=== PATIENT | male | born 1950 | race Caucasian/White ===

== ENCOUNTER 2017-11-18 05:48 | Inpatient (IN) | payer OTHER, MEDICARE ==
[2017-11-16 12:56] VITALS: BMI 28.1
[~2017-11-18 05:48] MED LIST: CELECOXIB 200 MG CAPSULE PO ONE; oxyCODONE HCL 10 MG SUSTAINED ACTING TABLET PO ONE
[2017-11-18] MEDS ORDERED: CELECOXIB 200 MG CAPSULE ONE (06:43)
[2017-11-18] MEDS ORDERED: oxyCODONE HCL 10 MG SUSTAINED ACTING TABLET ONE (06:44)
[2017-11-18] MEDS ORDERED: MIDAZOLAM HCL 2 MG/2 ML SINGLE DOSE VIAL ONE (06:59)
[2017-11-18] MEDS ORDERED: DEXAMETHASONE SOD PHOSPHATE/PF 10 MG/ML SDV ONE (06:59)
[2017-11-18] MEDS ORDERED: BUPIVACAINE LIPOSOME/PF (EXPAREL) 266 MG/20 ML VIAL ONE (06:59)
[2017-11-18] MEDS ORDERED: SODIUM CHLORIDE 0.9% P/F 10 ML VIAL IJ ONE (07:00)
[2017-11-18] MEDS ORDERED: ROPIVACAINE HCL 0.5% 30ML VIAL ONE (07:00)
--- NOTE | 2017-11-18 07:09 | HP ---
HISTORY OF PRESENT ILLNESS Patient is a 67 y/o male with a past medical history of hypertension, hyperipidemia, DJD, renal insufficency, and lumbar radiculopathy (s/p lumbar disc fusion). Patient was admitted for elective left total knee replacement, Dr Yusuf. PCP: Dr Villanueva Universal Banker: Dr Noland Recent travel: none Family History: father-, [place] mother, heart disease Social History:retired resides at home Smoking:none Alcohol:social Drugs: none REVIEW OF SYSTEMS CONSTITUTIONAL: Absent: fever, chills, diaphoresis, generalized weakness, malaise, loss of appetite, weight change HEENT: Absent: rhinorrhea, nasal congestion, throat pain, throat swelling, difficulty swallowing, mouth swelling, ear pain, eye pain, visual changes CARDIOVASCULAR: Absent: chest pain, syncope, palpitations, irregular heart rate, lightheadedness , peripheral edema RESPIRATORY: Absent: cough, shortness of breath, dyspnea with exertion, orthopnea, wheezing, stridor, hemoptysis GASTROINTESTINAL: Absent: abdominal pain, abdominal distension, nausea, vomiting, diarrhea, constipation, melena, hematochezia GENITOURINARY: Absent: dysuria, frequency, urgency, hesitancy, hematuria, flank pain, genital pain MUSCULOSKELETAL: present: left knee pain Absent: myalgia, arthralgia, joint swelling, back pain, neck pain SKIN: Absent: rash, itching, pallor HEMATOLOGIC/IMMUNOLOGIC: Absent: easy bleeding, easy bruising, lymphadenopathy, frequent infections ENDOCRINE: Absent: unexplained weight gain, unexplained weight loss, heat intolerance, cold intolerance NEUROLOGIC: Absent: headache, focal weakness or paresthesias, dizziness, unsteady gait, seizure, mental status changes, bladder or bowel incontinence PSYCHIATRIC: Absent: anxiety, depression, suicidal or homicidal ideation, hallucinations. PHYSICAL EXAMINATION: Vital Signs Temperature 97.5 F L 11/18/17 06:48 Pulse Rate 54 L 11/18/17 06:48 Respiratory Rate 17 11/18/17 06:48 Blood Pressure 155/79 11/18/17 06:48 O2 Sat by Pulse Oximetry (%) GENERAL: Awake, alert, and fully oriented, in no acute distress. HEAD: Normal with no signs of trauma. EYES: Pupils equal, round and reactive to light, extraocular movements intact, sclera anicteric, conjunctiva clear. No lid lag. EARS, NOSE, THROAT: Ears normal, nares patent, oropharynx clear without exudates. Moist mucous membranes. NECK: Normal range of motion, supple without lymphadenopathy, JVD, or masses. LUNGS: Breath sounds equal, clear to auscultation bilaterally. No wheezes, and no crackles. No accessory muscle use. HEART: Regular rate and rhythm, normal S1 and S2 without murmur, rub or gallop. ABDOMEN: Soft, nontender, not distended, normoactive bowel sounds, no guarding, no rebound, no masses. No hepatomegaly or splenomegaly. MUSCULOSKELETAL: Normal range of motion at all joints. No bony deformities or tenderness. No CVA tenderness. UPPER EXTREMITIES: 2+ pulses, warm, well-perfused. No cyanosis. No clubbing. No peripheral edema. LOWER EXTREMITIES: 2+ pulses, warm, well-perfused. No calf tenderness. No peripheral edema left knee, pain upon flexion and extension of the knee, no erythema noted, +1 prepatella edema . NEUROLOGICAL: Cranial nerves II-XII intact. Normal speech. Normal gait. PSYCHIATRIC: Cooperative. Good eye contact. Appropriate mood and affect. SKIN: Warm, dry, normal turgor, no rashes or lesions noted, normal capillary refill. Active Medications Generic Name Dose Route Start Last Admin Trade Name Freq PRN Reason Stop Dose Admin Celecoxib 200 mg 11/17/17 20:59 Celebrex - PO 11/17/17 21:00 ASU-PREOP ONE Cefazolin Sodium 2 gm/ 50 mls @ 100 mls/hr 11/17/17 20:59 Dextrose IVPB 11/17/17 21:28 ANES-PREOP ONE Vancomycin HCl 1,000 mg/ 250 mls @ 250 mls/hr 11/17/17 20:59 Dextrose IVPB 11/17/17 21:58 ONCE ONE Protocol Oxycodone HCl 10 mg 11/17/17 20:59 Oxycontin - PO 11/17/17 21:00 ASU-PREOP ONE Ropivacaine 51 ml 11/17/17 20:59 Lo-Operative Pain Cocktail IA 11/17/17 21:00 ONCE ONE Tranexamic Acid 1,000 mg 11/17/17 20:59 Tranexamic Acid - IVPUSH 11/17/17 21:00 ONCE ONE ASSESSMENT/PLAN: F/E/N - npo pending OR - replete electrolytes ppx - hold ac pending or today - scd/rosa dispo: pt requires inpatient admission Problem List - Problem (1) Degenerative joint disease of knee, left Assessment/Plan: - pending OR today for elective total knee replacement, Dr Yusuf Code(s): M17.12 - UNILATERAL PRIMARY OSTEOARTHRITIS, LEFT KNEE (2) Hypertension Assessment/Plan: -continue home medication, strict b/p monitoring, b/p slightly above continue coreg and norvasc - chart reviewed from railroad wheels and axle inspector, Dr Noland, echo 2016, diastolic dysfunction, stress test 2016 no ischemic changes Code(s): I10 - ESSENTIAL (PRIMARY) HYPERTENSION (3) Renal insufficiency Assessment/Plan: -baseline creatine 1.28, strict monitoring, caution with LR in OR - repeat creatine today at 1800 Code(s): N28.9 - DISORDER OF KIDNEY AND URETER, UNSPECIFIED (4) Hyperlipemia Assessment/Plan: - continue simvastin Code(s): E78.5 - HYPERLIPIDEMIA, UNSPECIFIED Visit type - Case Type Case Type: Scheduled Admission - Emergency Emergency Visit: No - New patient This patient is new to me today: Yes Date on this admission: 11/18/17 - Critical Care Critical Care patient: No
[2017-11-18] MEDS ORDERED: TRANEXAMIC ACID 1000 MG/10 ML VIAL IVPUSH ONE (08:00)
[2017-11-18] MEDS ORDERED: VANCOMYCIN 1,000 MG in DEXTROSE 5%-WATER - 250 ML IVPB ONE (08:00)
[2017-11-18] MEDS ORDERED: CEFAZOLIN 2 GM in DEXTROSE 5%-WATER - 50 ML IVPB ONE (08:00)
[2017-11-18] MEDS ORDERED: ROPIVICAINE 0.2%/MORPH PF/KETOROLAC - 51ML DISP.SYRINGE IA ONE (08:00)
[2017-11-18] MEDS ORDERED: BENZOIN/ALOE VERA/STORAX/TOLU 58 ML BOTTLE ONE (12:56)
[2017-11-18] MEDS ORDERED: LACTATED RINGERS SOLUTION 1,000 ML IV SCH (13:15)
[2017-11-18] MEDS ORDERED: ONDANSETRON 4 MG/2 ML VIAL IVPUSH PRN ×2 (13:41→14:04)
[2017-11-18] MEDS ORDERED: MAG HYDROX/AL HYDROX/SIMETH 30 ML UNIT-DOSE CUP PO PRN (14:04)
[2017-11-18] MEDS ORDERED: MAGNESIUM HYDROX 2400MG/30ML ORAL SUSPENSION 30 ML CUP PO PRN (14:04)
[2017-11-18] MEDS ORDERED: ONDANSETRON 4 MG/2 ML VIAL ONE (14:13)
--- NOTE | 2017-11-18 14:24 | OP ---
Operative Note - Note: Operative Date: 11/18/17 Pre-Operative Diagnosis: osteoarthritis Operation: Left total knee makoplasty Implants: Cemeted [place] Triathlon. Femur-7, CR. Tibia- 8. Poly 11mm, CS. Patella- 27mm, symmetric Post-Operative Diagnosis: Same as Pre-op Surgeon: Dell Yusuf Mathematics Improvement Teacher: Melodie Reese Anesthesiologist/PASTRY COOK HELPER: Lesley Canela Anesthesia: Spinal, Local (block), MAC Specimens Removed: distal femur, proximal tibia, partial patella Estimated Blood Loss (mls): 100 Fluid Volume Replaced (mls): 1,300 Operative Report Dictated: Yes
--- NOTE | 2017-11-18 14:25 | SURG ---
Surgery Assistant Office Manager Note Assistant Office Manager: Melodie Reese PA-C Date of Service: 11/18/17 Diagnosis: osteoarthritis Procedure: Left total knee makoplasty I was present for the entirety of the operative procedure. For further detail, please refer to operative report. Visit type - Case Type Case Type: Scheduled Admission - Emergency Emergency Visit: No - New patient This patient is new to me today: Yes Date on this admission: 11/18/17
[2017-11-18] MEDS ORDERED: SODIUM CHLORIDE 1,000 ML IV SCH (14:45)
[2017-11-18] MEDS ORDERED: ACETAMINOPHEN 325 MG TABLET (FP) ONE (14:55)
[2017-11-18] MEDS ORDERED: oxyCODONE HCL 5 MG TABLET ONE ×2 (14:55→15:36)
[2017-11-18] MEDS: oxyCODONE HCL 5 MG TABLET PO PRN ×3 (15:03→19:51)
[2017-11-18] MEDS ORDERED: hydrALAZINE HCL 20 MG/ML VIAL IVPUSH ONE ×4 (15:11→15:34)
[2017-11-18] MEDS ORDERED: hydrALAZINE HCL 20 MG/ML VIAL ONE (15:12)
[2017-11-18] MEDS: ACETAMINOPHEN 325 MG TABLET (FP) PO SCH ×2 (15:14→19:52)
[2017-11-18] MEDS: CEFAZOLIN 2 GM/D5W 2 GM/50 ML ML IVPB SCH (18:09)
[2017-11-18] MEDS ORDERED: VANCOMYCIN 1 GRAM (PRE-DOCKED) 1,000 MG/250 ML BAG IVPB ONE (21:00)
[2017-11-18] MEDS: ASPIRIN 81 MG CHEWABLE TABLETS PO SCH (21:57)
[2017-11-18] MEDS: GABAPENTIN 300 MG CAPSULE (FP) PO SCH (21:57)
[2017-11-18] MEDS: CARVEDILOL 12.5 MG TABLET (FP) PO SCH (21:57)
[2017-11-18] MEDS: SENNOSIDES/DOCUSATE COMBO (SENNA PLUS) TABLET (UD) PO SCH (21:57)
[2017-11-18] MEDS: oxyCODONE HCL 10 MG SUSTAINED ACTING TABLET PO SCH (21:58)
[2017-11-19] MEDS: CEFAZOLIN 2 GM/D5W 2 GM/50 ML ML IVPB SCH (01:56)
[2017-11-19] MEDS: oxyCODONE HCL 5 MG TABLET PO PRN ×4 (05:38→18:01)
[2017-11-19] MEDS: ACETAMINOPHEN 325 MG TABLET (FP) PO SCH ×4 (05:38→19:45)
[2017-11-19 08:35] LABS: ANION GAP 6 (8-16); BLOOD UREA NITROGEN 23 mg/dl (7-18); CHLORIDE 102 mmol/L (98-107); CO2 27 mmol/L (22-28); CREATININE 1.4 mg/dl (0.6-1.3); GLUCOSE,RANDOM 118 mg/dl (74-106); POTASSIUM 4.5 mmol/L (3.5-5.1); SODIUM 135 mmol/L (136-145)
[2017-11-19 08:36] LABS: HEMATOCRIT 44.9 % (35.4-49); HEMOGLOBIN 14.7 GM/dl (11.7-16.9); MCH 29.8 pg (25.7-33.7); MCHC 32.8 g/dl (32.0-35.9); MEAN CELL VOLUME 90.9 fl (80-96); MEAN PLT VOLUME 10.7 fl (7.5-11.1); PLATELET COUNT 131 K/MM3 (134-434); RBC 4.94 M/mm3 (4.00-5.60); RDW 13.8 % (11.9-15.9); WHITE BLOOD COUNT 10.8 K/mm3 (4.0-10.8)
--- NOTE | 2017-11-19 09:22 | PN ---
Progress Note (short form) - Note Progress Note: Surgery POD #1 left total knee makoplasty. Patient seen and examined at the bedside with and no complaints. Patient states he had difficulty sleeping but his pain was controlled. He is tolerating a regular diet, OOB with walker and voiding. He denies any CP, SOB, N/V, H/A, dizziness or blurred vision. Vital Signs Temp 98.3 F 11/19/17 05:29 Pulse 57 L 11/19/17 05:29 Resp 20 11/19/17 05:29 BP 95/62 11/19/17 05:29 Pulse Ox 98 11/19/17 08:30 Intake & Output 11/18/17 11/18/17 11/19/17 11:59 23:59 11:59 Intake Total 1300 1200 1100 Output Total 2500 Balance 1300 -1300 1100 Weight 225 lb Intake: IV 1300 100 750 Normal Saline - 1,000 ml 750 @ 100 mls/hr IV ASDIR FLACO Rx#:[id number] IVPB 250 100 Oral 850 250 Output: Urine 2500 Void 700 Other: Voiding Method Urinal Toilet # Unmeasured Voids Void 350 Bowel Movement No Height 6 ft 3 in Body Mass Index (BMI) 28.1 Weight Measurement Method Standing Scale CBC, BMP 11/19/17 07:35 11/19/17 07:35 PE: A&Ox3, NAD unlabored resp on RA Left knee aquacell dressing c/d/i with no evidence of active d/c. surrounding tissue without tracking erythema. + knee effusion and mild diffuse edema appropriate to status. ROM fom 0-100 degrees. Able to straight leg raise. B/L LE compartments soft, supple and non-tender to palpation . Left foot + dorsiflexion and 2/5 strength compared to 5/5 on right side. Sensation over dorsum for left foot and web space of 1-2 toes intact. Problem List - Problems (1) Degenerative joint disease of knee, left Assessment/Plan: POD #1 left knee total makoplasty doing well with some residual nerve block effects on operative side appropriate to status. Plan: 1) OOB with PT WBAT with walker 2) COntinue DVT prophylaxis with b/l teds, scds and Aspirin 81mg BID x 6 weeks 3) Ice to left knee 4) Daily IS 5) D/c planning for tomorrow if medically stable Code(s): M17.12 - UNILATERAL PRIMARY OSTEOARTHRITIS, LEFT KNEE
[2017-11-19] MEDS: amLODIPine BESYLATE 5 MG TABLET (FP) PO SCH (09:27)
[2017-11-19] MEDS: CARVEDILOL 12.5 MG TABLET (FP) PO SCH ×2 (09:30→21:28)
[2017-11-19] MEDS: ASPIRIN 81 MG CHEWABLE TABLETS PO SCH ×2 (09:30→21:25)
[2017-11-19] MEDS: GABAPENTIN 300 MG CAPSULE (FP) PO SCH ×2 (09:30→21:26)
[2017-11-19] MEDS: PANTOPRAZOLE 40 MG TABLET (FP) PO SCH (09:31)
[2017-11-19] MEDS: oxyCODONE HCL 10 MG SUSTAINED ACTING TABLET PO SCH ×2 (09:31→21:26)
[2017-11-19] MEDS: SENNOSIDES/DOCUSATE COMBO (SENNA PLUS) TABLET (UD) PO SCH ×2 (09:31→21:25)
--- NOTE | 2017-11-19 10:35 | PN ---
Progress Note (short form) - Note Progress Note: 67M POD1 s/p left TKR makoplasty under spinal anesthetic with peripheral nerve blocks with post operative pain relief. Pt states that his pain is well controlled, reports no anesthetic complications. Sensory and motor function intact in bilateral lower extremities.
--- NOTE | 2017-11-19 14:11 | PN ---
Physical Exam: SUBJECTIVE: Patient seen and examined, reports minimal pain to the left knee, denies any paresthesia to the extremity OBJECTIVE: Patient is a 67 y/o male with a past medical history of hypertension , hyperipidemia, DJD, renal insufficency, and lumbar radiculopathy (s/p lumbar disc fusion). Patient is s/p left TKR, Dr Yusuf. Vital Signs Period Temp Pulse Resp BP Sys/Hill Pulse Ox Last 24 Hr 97.6 F-98.3 F 42-94 16-20 95-172/62-97 94-100 GENERAL: The patient is awake, alert, and fully oriented, in no acute distress. HEAD: Normal with no signs of trauma. EYES: PERRL, extraocular movements intact, sclera anicteric, conjunctiva clear. No ptosis. ENT: Ears normal, nares patent, oropharynx clear without exudates, moist mucous membranes. NECK: Trachea midline, full range of motion, supple. LUNGS: Breath sounds equal, clear to auscultation bilaterally, no wheezes, no crackles, no accessory muscle use. HEART: Regular rate and rhythm, S1, S2 without murmur, rub or gallop. ABDOMEN: Soft, nontender, nondistended, normoactive bowel sounds, no guarding, no rebound, no hepatosplenomegaly, no masses. EXTREMITIES: 2+ pulses, warm, well-perfused, no edema. LEFT LOWER EXTREMITY: aguacel dressing intact, less than 3 second capillary refill, +3 pedal pulse NEUROLOGICAL: Cranial nerves II through XII grossly intact. Normal speech, gait not observed. PSYCH: Normal mood, normal affect. SKIN: Warm, dry, normal turgor, no rashes or lesions noted Laboratory Results - last 24 hr 11/19/17 11/19/17 07:35 07:35 WBC 10.8 RBC 4.94 Hgb 14.7 Hct 44.9 MCV 90.9 MCH 29.8 MCHC 32.8 RDW 13.8 Plt Count 131 L MPV 10.7 Sodium 135 L Potassium 4.5 Chloride 102 Carbon Dioxide 27 Anion Gap 6 L BUN 23 H Creatinine 1.4 H Random Glucose 118 H Calcium 9.0 Active Medications Generic Name Dose Route Start Last Admin Trade Name Freq PRN Reason Stop Dose Admin Acetaminophen 650 mg 11/18/17 13:15 11/19/17 12:25 Tylenol - PO 11/21/17 13:14 650 mg Q6H FLACO Administration Al Hydroxide/Mg Hydroxide 30 ml 11/18/17 14:04 Mylanta Oral Suspension - PO Q4H PRN DYSPEPSIA Amlodipine Besylate 5 mg 11/19/17 10:00 11/19/17 09:27 Norvasc - PO 5 mg DAILY FLACO Administration Aspirin 81 mg 11/18/17 22:00 11/19/17 09:30 Asa - PO Not Given BID FLACO Carvedilol 12.5 mg 11/18/17 22:00 11/19/17 09:30 Coreg - PO 12.5 mg BID FLACO Administration Gabapentin 300 mg 11/18/17 22:00 11/19/17 09:30 Neurontin - PO 300 mg BID FLACO Administration Sodium Chloride 1,000 mls @ 100 mls/hr 11/18/17 14:45 11/18/17 15:14 Normal Saline - IV Not Given ASDIR FLACO Magnesium Hydroxide 30 ml 11/18/17 14:04 Milk Of Magnesia - PO PRN PRN CONSTIPATION Ondansetron HCl 4 mg 11/18/17 14:04 Zofran Injection IVPUSH Q6H PRN NAUSEA Oxycodone HCl 5 mg 11/18/17 13:11 11/18/17 15:35 Roxicodone - PO 5 mg Q3H PRN Administration PAIN LEVEL 1-5 Oxycodone HCl 10 mg 11/18/17 13:11 11/19/17 12:24 Roxicodone - PO 10 mg Q3H PRN Administration PAIN LEVEL 6-10 Oxycodone HCl 10 mg 11/18/17 22:00 11/19/17 09:31 Oxycontin - PO 11/21/17 13:12 10 mg BID FLACO Administration Pantoprazole Sodium 40 mg 11/19/17 10:00 11/19/17 09:31 Protonix - PO 40 mg DAILY FLACO Administration Senna/Docusate Sodium 2 tablet 11/18/17 22:00 11/19/17 09:31 Pericolace - PO 2 tablet BID FLACO Administration ASSESSMENT/PLAN: 1) MS s/p total knee replacement (left) pod #1 - PT as per orthopedist - incentive spirometer - prn pain medication 2) cardiovascular hypertension - continue coreg and norvasc, - chart reviewed from shackler, Dr Noland, echo 2016, diastolic dysfunction, stress test 2016 no ischemic changes hyperlipidemia - continue simvastin 3) neph -baseline creatine 1.2, repeat creatine 1.4 - close monitoring F/E/N - regular diet - replete electrolytes ppx -asa - pt - protonix - scd/rosa dispo: pt requires inpatient admission Problem List - Problems (1) Degenerative joint disease of knee, left Code(s): M17.12 - UNILATERAL PRIMARY OSTEOARTHRITIS, LEFT KNEE (2) Hypertension Code(s): I10 - ESSENTIAL (PRIMARY) HYPERTENSION (3) Renal insufficiency Code(s): N28.9 - DISORDER OF KIDNEY AND URETER, UNSPECIFIED (4) Hyperlipemia Code(s): E78.5 - HYPERLIPIDEMIA, UNSPECIFIED Visit type - Emergency Visit Emergency Visit: No - New Patient This patient is new to me today: No - Critical Care Critical Care patient: No - Discharge Referral Referred to [facility] Med P.C.: No
--- NOTE | 2017-11-19 23:29 | PN ---
Progress Note (short form) - Note Progress Note: 67M doing well s/p L TKA (sub vastus, MAKOplasty) POD #1. Pain well controlled. No acute events overnight. Pt. denies overnight history of chest pain, shortness of breath, nausea, vomiting, chills and sweats. (+) Voiding, (+) Flatus, (?) BM. All labs and vitals reviewed. Aleukocytosis. Apyrexia. PE: AAO x 3, NAD. L Knee: Dressing C/D/I. Pin site dressing w/(+) sanguinous drainage. (+) Medial thigh hematoma. Calf soft, compressible w/o TTP. NVI distally; intact dorsiflexion. A/P: 67M doing well s/p L TKA POD #1. -Pain control. -DVT PPx.: mechanical (SCD's, RUIZ's) & chemical (ASA 81mg PO BID x 6 weeks). -Incentive spirometry. -PT/OT/Rehab, OOB. -WBAT LLE. -LLE pin site dressing changed: compressing pressure dressing applied. -Care per medical team. -Call to book f/u appointment w/[facility] [place] office 11/26/2017: . -Will follow.
[2017-11-20] MEDS: oxyCODONE HCL 5 MG TABLET PO PRN ×2 (05:58→09:58)
[2017-11-20] MEDS: ACETAMINOPHEN 325 MG TABLET (FP) PO SCH ×2 (05:59→08:05)
[2017-11-20 06:33] VITALS: BP 124/68; PULSE 75; TEMP 99
--- NOTE | 2017-11-20 07:30 | PN ---
Progress Note (short form) - Note Progress Note: Surgery POD #2 left total knee makoplasty. Patient seen and examined at the bedside with and no complaints. Patient states his pain was controlled. He is tolerating a regular diet, OOB with walker and voiding. He denies any CP, SOB, N /V, H/A, dizziness or blurred vision. Vital Signs Temp 99.0 F 11/20/17 06:00 Pulse 75 11/20/17 06:00 Resp 20 11/20/17 06:00 BP 124/68 11/20/17 06:00 Pulse Ox 97 11/20/17 06:32 Intake & Output 11/19/17 11/19/17 11/20/17 11:59 23:59 11:59 Intake Total 1100 400 Balance 1100 400 Intake: IV 750 Normal Saline - 1,000 ml 750 @ 100 mls/hr IV ASDIR FLACO Rx#:[id number] IVPB 100 Oral 250 400 Other: Voiding Method Urinal Urinal Urinal # Unmeasured Voids Void 350 Bowel Movement No PE: A&Ox3, NAD unlabored resp on RA Left knee aquacell dressing c/d/i with no evidence of active d/c. distal pin sites c/d/i without d/c- redressed with aquacell. surrounding tissue without tracking erythema. + knee effusion and moderate diffuse ecchymosis over medial knee and thigh appropriate to status. ROM fom 0-100 degrees. Able to straight leg raise. B/L LE compartments soft, supple and non-tender to palpation . + dorsiflexion and 5/5 strength b/l Sensation over dorsum for left foot and web space of 1-2 toes intact. Problem List - Problems (1) Degenerative joint disease of knee, left Assessment/Plan: POD #2 left knee total makoplasty doing well. Plan: 1) OOB with PT WBAT with walker 2) COntinue DVT prophylaxis with b/l teds, scds and Aspirin 81mg BID x 6 weeks 3) Ice to left knee 4) Daily IS 5) D/c planning for today . Code(s): M17.12 - UNILATERAL PRIMARY OSTEOARTHRITIS, LEFT KNEE
[2017-11-20 09:08] LABS: HEMATOCRIT 36.5 % (35.4-49); HEMOGLOBIN 12.4 GM/dl (11.7-16.9); MCH 30.7 pg (25.7-33.7); MCHC 33.9 g/dl (32.0-35.9); MEAN CELL VOLUME 90.6 fl (80-96); MEAN PLT VOLUME 10.9 fl (7.5-11.1); PLATELET COUNT 95 K/MM3 (134-434); RBC 4.04 M/mm3 (4.00-5.60); RDW 13.4 % (11.9-15.9); WHITE BLOOD COUNT 10.1 K/mm3 (4.0-10.8)
[2017-11-20] MEDS: GABAPENTIN 300 MG CAPSULE (FP) PO SCH (09:56)
[2017-11-20] MEDS: ASPIRIN 81 MG CHEWABLE TABLETS PO SCH (09:56)
[2017-11-20] MEDS: PANTOPRAZOLE 40 MG TABLET (FP) PO SCH (09:56)
[2017-11-20] MEDS: CARVEDILOL 12.5 MG TABLET (FP) PO SCH (09:56)
[2017-11-20] MEDS: SENNOSIDES/DOCUSATE COMBO (SENNA PLUS) TABLET (UD) PO SCH (09:56)
[2017-11-20] MEDS: amLODIPine BESYLATE 5 MG TABLET (FP) PO SCH (09:56)
[2017-11-20] MEDS: oxyCODONE HCL 10 MG SUSTAINED ACTING TABLET PO SCH (09:57)
--- NOTE | 2017-11-20 11:36 | OP ---
DATE OF OPERATION: 11/18/2017 SURGEON: Dell Yusuf MD CLOTH GRADER: Melodie Reese PA-C PREOPERATIVE DIAGNOSIS: Osteoarthritis, left knee. POSTOPERATIVE DIAGNOSIS: Osteoarthritis, left knee. SURGICAL PROCEDURE: Left MAKOplasty total knee replacement via subvastus approach. ANESTHESIA: Spinal and sedation. POSITION: Supine. INCISION: Midline. ESTIMATED BLOOD LOSS: 100 mL. INTRAVENOUS FLUID: 1.3 L crystalloid. SPECIMENS: None. DRAINS: None. COMPLICATIONS: None. URINE OUTPUT: None. BACTERIOLOGY: None. TRANSFUSIONS: None. CLOSURE: No. 1 and 2-0 Vicryl, 3-0 Biosyn. TOURNIQUET PRESSURE: 250 mmHg. TOURNIQUET TIME: 191 minutes. INDICATIONS: The patient is a 67-year-old gentleman who was indicated for a left total knee replacement in order to facilitate improved motion and mobilization and to prevent the complications associated with a sedentary lifestyle. The patient requested robotic-assisted MAKOplasty total knee replacement performed via the most muscle-sparing approach available. For these reasons, we decided to perform a subvastus approach as part of the procedure. The patient was identified in the holding area by his arm band. A long discussion was held with the patient in the presence of his partner regarding the risks, benefits, and alternatives of the above-named procedure. Risks include, but are not limited to, pain, bleeding, infection, damage to surrounding structures (including nerves, blood vessels, skin, ligaments, tendons, and bone), wound complications, failure of hardware/implants/reduction, need for further surgery, blood clots, myocardial infarction, pulmonary embolism, anesthesia complications, compartment syndrome, limb loss, limp, loss of function, and . Benefits are as mentioned above. Alternatives include no surgery. All questions were answered. The patient and his partner understood and agreed to the procedure. Informed consent was obtained, witnessed, and verified. The patient's correct operative limb - that is the left lower extremity - was marked, and the patient was taken to the operating room after being seen by the anesthesia and nursing staff. DESCRIPTION OF PROCEDURE: The patient was brought into the operating room and transferred to the OR table and secured with a safety strap. Consent and the operative site were again verified with the patient and nursing and anesthesia staff. The patient received a left lower extremity nerve block in the preoperative holding area, and from that time on, received 1 g of IV vancomycin as well as 2 g of IV Ancef. In the operating room, a time-out was done led by , the attending surgeon. A preoperative orthopaedic exam revealed a marked varus deformity of the left knee. The patient was positioned with all bony prominences well padded, and a tourniquet was placed proximally on the left thigh and set to 250 mmHg. The operative site was prepped and draped in a standard sterile fashion. A time-out was again done. The limb was exsanguinated using an Esmarch. Tourniquet was inflated and the case began. A midline longitudinal incision was made into the left knee followed by a subvastus exposure. A freehand cut over the posterior surface of the patella was also made so as to facilitate patellar resurfacing. Three lug holes were drilled into the cut surface of the patella so as to facilitate resurfacing of the patella with a prosthetic implant. At this point in time, the tibial pins for the MAKOplasty Array were inserted approximately 4 fingerbreadths distal to the tibial tubercle over the anteromedial surface of the tibia. 2 x Short, longitudinal incisions were made to facilitate approach to the surface of the tibia. The tibial array was then set up. Next, 2 pins were drilled into the epicondylar region of the medial aspect of the distal femur almost in the coronal plane of the knee, exiting medially. The femoral Array was then assembled as well. Checkpoint stubs were then inserted into the proximal tibial bone bed as well as the distal femoral bone bed, adjacent to the exposed medial femoral epicondyle. Next, all appropriate checkpoints were obtained in accord with the MAKOplasty software and verified to be within acceptable parameters so as to perform the MAKOplasty procedure with accuracy. At this point in time, the MAKOplasty robotic arm was utilized to perform all bone cuts. Trial components were then inserted, and excellent coronal, sagittal, and rotational balance was demonstrated with good fit of the implants. An outstanding range of motion was also demonstrated with the knee being able to be flexed in excess of 120 degrees of flexion while achieving full extension. At this point in time, the proximal tibial bone bed was then prepped for final implantation as was the distal femoral bone bed. Due to the excessive amount of sclerotic bone over the distal femur and proximal tibia, numbers drill holes were made into the bone bed to allow maximum potential for interdigitation of the cement mantel so as to achieve maximum fixation of the implant into the bone bed. Next, the bone was copiously irrigated so as to displace all blood and fat from the interstices of the cancellous bone. Next, cement was impacted using a high pressurized gun into the interstices of the bone bed on all cut bony surfaces. The following implants were then cemented into place: [place] Triathlon knee, tibia size 8, femur size 7 (cruciate retaining) , patella 27 mm symmetric, and at this point in time a trial 9-mm polyethylene insert was inserted, and the knee was placed in full extension so as to allow curing of the cement with the knee in full extension. Once the cement was satisfactorily hard , all excess cement was debrided and removed using curettes. A size 11-mm polyethylene insert was implanted, and this is a CS-type insert. Next, the knee was taken through a full range of motion, and alignment and stability in the coronal, sagittal, and rotation planes in full extension and in full flexion were absolutely satisfactory. The deformity was reduced. The leg was straight, and passive range of motion was demonstrated from 0-130 degrees of knee flexion. There was no varus and valgus instability demonstrated in either full extension or at 90 degrees of flexion. Again, the wounds were copiously irrigated, and the tourniquet was released at a final time of 191 minutes. Hemostasis was assured utilizing electrocautery. The wounds were closed primarily utilizing No. 1 and 2-0 Vicryl sutures, and the skin was eventually closed using 3-0 Biosyn sutures in intracuticular running fashion. It should be noted that the checkpoint stubs and femoral as well as tibial pins were all removed prior to closure and prior to the final round of irrigation. The tibial pin sites were closed utilizing 3-0 Biosyn in [id number] suture fashion. Next, benzoin and Steri-Strips as well as Aquacel dressings were applied over the wounds, and Webril and Babak wraps were placed from the foot all the way up the thigh as a compressive and sterile dressing. The sponge and needle counts were correct at the end of the case, and I, the attending surgeon, was present and scrubbed throughout the case. The patient was then transferred to the hospital bed and transferred to the recovery room in stable condition having tolerating the procedure well. MD SHAHZAD Gonzalez/[id number] MTDD
--- NOTE | 2017-11-20 12:24 | DS ---
Physical Exam: SUBJECTIVE: Patient seen and examined, ambulatory with physical therapy today, denies any paresthesia to the left lower extremity, denies any chest pain or shortness of breath. OBJECTIVE:Patient is a 67 y/o male with a past medical history of hypertension, hyperipidemia, DJD, renal insufficency, and lumbar radiculopathy (s/p lumbar disc fusion). Patient was admitted for elective left total knee replacement, Dr Yusuf. Vital Signs Temperature 99.0 F 11/20/17 06:00 Pulse Rate 75 11/20/17 06:00 Respiratory Rate 20 11/20/17 06:00 Blood Pressure 124/68 11/20/17 06:00 O2 Sat by Pulse Oximetry (%) 97 11/20/17 08:23 PHYSICAL EXAM GENERAL: The patient is awake, alert, and fully oriented, in no acute distress. HEAD: Normal with no signs of trauma. EYES: PERRL, extraocular movements intact, sclera anicteric, conjunctiva clear. ENT: Ears normal, nares patent, oropharynx clear without exudates, moist mucous membranes. NECK: Trachea midline, full range of motion, supple. LUNGS: Breath sounds equal, clear to auscultation bilaterally, no wheezes, no crackles, no accessory muscle use. HEART: Regular rate and rhythm, S1, S2 without murmur, rub or gallop. ABDOMEN: Soft, nontender, nondistended, normoactive bowel sounds, no guarding, no rebound, no hepatosplenomegaly, no masses. EXTREMITIES: 2+ pulses, warm, well-perfused, no edema. LEFT LOWER EXTREMITY: aguacel dressing, CDI, less than 3 second capillary refill , + 3 pedal pulse NEUROLOGICAL: Cranial nerves II through XII grossly intact. Normal speech, gait not observed. PSYCH: Normal mood, normal affect. SKIN: Warm, dry, normal turgor, no rashes or lesions noted. LABS CBC,CMP WBC 10.1 K/mm3 (4.0-10.8) 11/20/17 08:00 RBC 4.04 M/mm3 (4.00-5.60) 11/20/17 08:00 Hgb 12.4 GM/dl (11.7-16.9) D 11/20/17 08:00 Hct 36.5 % (35.4-49) D 11/20/17 08:00 MCV 90.6 fl (80-96) 11/20/17 08:00 MCH 30.7 pg (25.7-33.7) 11/20/17 08:00 MCHC 33.9 g/dl (32.0-35.9) 11/20/17 08:00 RDW 13.4 % (11.9-15.9) 11/20/17 08:00 Plt Count 95 K/MM3 (134-434) L D 11/20/17 08:00 MPV 10.9 fl (7.5-11.1) 11/20/17 08:00 Sodium 135 mmol/L (136-145) L 11/19/17 07:35 Potassium 4.5 mmol/L (3.5-5.1) 11/19/17 07:35 Chloride 102 mmol/L (98-107) 11/19/17 07:35 Carbon Dioxide 27 mmol/L (22-28) 11/19/17 07:35 Anion Gap 6 (8-16) L 11/19/17 07:35 BUN 23 mg/dl (7-18) H 11/19/17 07:35 Creatinine 1.4 mg/dl (0.6-1.3) H 11/19/17 07:35 Random Glucose 118 mg/dl (74-106) H 11/19/17 07:35 Calcium 9.0 mg/dl (8.4-10.2) 11/19/17 07:35 HOSPITAL COURSE: The patient was admitted to the Med-Surg Unit after an elective left total knee replacement. On post op day 1, the patient ambulated the hallways with assistance. Narcotic and non-narcotic pain management control was achieved with an oral and IV approach. Lo-operative IV ABX were administered. DVT prophylaxis was achieved with SCDs and early ambulation. The patient ambulated with Physical Therapy and will receive home physical therapy. Narcotic scripts checked with [facility] prior to escibe. The discharge instructions and an oral pain management plan were reviewed with the patient. All questions answered. Above plan discussed with Dr. Yusuf and agreed. Date of Admission:11/18/17 Date of Discharge: 11/20/17 Minutes to complete discharge: 45 Visit type - Case Type Case Type: Scheduled Admission - Emergency Emergency Visit: No - New patient This patient is new to me today: No - Critical Care Critical Care patient: No
--- NOTE | 2017-11-25 15:38 | PATH ---
Surgical Pathology Report Patient Name: ISAURO BEARD Med. Rec. #: [id number] /Age/Gender: 1950 (Age: 67) / M Account: [id number] Location: [facility] MED-SURG Taken: 11/18/2017 Received: 11/18/2017 Reported: 11/25/2017 Physicians: Dell Yusuf M.D. Specimen(s) Received BONE LEFT KNEE Clinical History Left knee osteoarthritis Final Diagnosis BONE, LEFT KNEE, TOTAL KNEE REPLACEMENT: DEGENERATIVE JOINT DISEASE. Electronically Signed Melodie Miner M.D. Gross Description Received in formalin labeled "bone left knee," is a 13.0 x 9.5 x 2.0 cm aggregate of multiple mayorga, irregular portions of bone and soft tissue. The tibial plateau measures 9.5 x 7.0 x 1.8 cm. There are multiple areas of eburnation identified, measuring up to 4.8 cm in greatest dimension. The remaining articular surfaces are mayorga-yellow and diffusely granular. The underlying trabecular bone is yellow and hard. Ball Holder sections are submitted in one cassette, following decalcification. /11/19/2017 [facility]/19/2017
== END 2017-11-20 12:56 | disposition home health service (06) | DRG 470 ==
LOC: FM/S 05:48
PROVIDERS: ADMIT Orthopaedic Surgery Adult Reconstructive Orthopaedic Surgery; ATTEND Orthopaedic Surgery Adult Reconstructive Orthopaedic Surgery
PROC: 0SRD0J9 Replacement of Left Knee Joint with Synthetic Substitute, Cemented, Open Approach (ICD-10-PCS; principal; 2017-11-18 09:42)
DX: M17.12 Unilateral primary osteoarthritis, left knee (principal); E78.5 Hyperlipidemia, unspecified; I10 Essential (primary) hypertension; N28.9 Disorder of kidney and ureter, unspecified
CPT/HCPCS: 36415; 72100-TC-FY; 73560-TC-LT; 73700-TC-RT; 76000-TC; 80048; 85027; 88304-TC; 88311-TC; 94010; 94760; 97116-GP